=== PATIENT | female | born 1985 | race Caucasian/White ===

== ENCOUNTER 2023-08-18 13:31 | Outpatient (CLI) | payer OTHER | END 2023-08-18 15:12 | disposition home or self-care (01) | LOC: NST 13:31 | PROVIDERS: ATTEND Obstetrics & Gynecology Gynecology | DX: Z34.83 Encounter for supervision of other normal pregnancy, third trimester (principal) ==

== ENCOUNTER 2023-08-28 08:01 | Outpatient (CLI) | payer OTHER | END 2023-08-28 08:36 | disposition home or self-care (01) | LOC: NST 08:01 | PROVIDERS: ATTEND Obstetrics & Gynecology Gynecology | DX: Z34.83 Encounter for supervision of other normal pregnancy, third trimester (principal) ==